=== PATIENT | male | born 1950 | race African-American/Black ===

== ENCOUNTER 2023-02-22 21:56 | Inpatient (IN) ==
[2023-02-22 22:37] LABS: Basophils # (auto) 0.03 K/uL (0.00-0.20); Basophils % (auto) 0.2 %; Eosinophils # (auto) 0.01 K/uL (0.00-0.50); Eosinophils % (auto) 0.1 %; Hematocrit (blood only) 38.6 % (42.0-52.0); Hemoglobin 12.5 g/dl (14.0-18.0); Immature Granulocytes # (auto) 0.13 K/uL (0.01-0.20); Immature Granulocytes % (auto) 0.9 %; Lymphocytes # (auto) 0.62 K/uL (1.20-3.40); Lymphocytes % (auto) 4.5 %; Mean Corpuscular Hemoglobin 26.7 pg (25.0-34.0); Mean Corpuscular Hgb Conc 32.4 g/dL (32.0-36.0); Mean Corpuscular Volume 82.3 fL (80.0-100.0); Mean Platelet Volume 10.6 fL (9.4-12.4); Monocytes # (auto) 1.29 K/uL (0.11-0.59); Monocytes % (auto) 9.3 %; Neutrophils # (auto) 11.72 K/uL (1.40-6.50); Platelet Count 199 K/uL (130-400); RDW Coefficient of Variation 16.7 % (11.5-14.5); RDW Standard Deviation 49.5 fL (36.4-46.3); Red Blood Count 4.69 M/uL (4.70-6.10)
[2023-02-22 22:51] LABS: Alanine Aminotransferase 10 U/L (7-52); Albumin Globulin Ratio 1.2 (0.9-2); Albumin Level 4.2 gm/dl (3.4-5.0); Alkaline Phosphatase 85 U/L (34-104); Anion Gap 9 (3-11); Aspartate Aminotransferase 15 U/L (13-39); BUN Creatinine Ratio 9.2 (10-20); Blood Urea Nitrogen 12 mg/dl (6-23); Calcium 9.5 mg/dl (8.6-10.3); Carbon Dioxide 22 mmol/L (21-32); Chloride 103 mmol/L (98-107); Est GFR (African American) 63.5 ml/min; Est GFR (Non-African American) 54.8 ml/min; Globulin 3.4 gm/dl (2.5-4.0); Glucose 176 mg/dl (70-99(Fasting)); Potassium 4.4 mmol/L (3.5-5.1); Sodium 134 mmol/L (136-145); Total Protein 7.6 gm/dl (6.0-8.3)
--- NOTE | 2023-02-22 23:56 | XRay Report ---
SINGLE VIEW CHEST CLINICAL HISTORY: Dyspnea FINDINGS: A PA chest radiograph is obtained. No prior studies are available for comparison at the jeff e of dictation. The heart is top normal for projection. The lungs and pleural spaces are clear. No pn eumothorax is seen. The bony thorax is grossly intact. IMPRESSION: No active disease in the chest. ACT 112: Negative or not required by law. Electronically signed by: Vic Lopez M.D. 02/22/2023 11:54 PM
[2023-02-23] MEDS ORDERED: SODIUM CHLORIDE 0.9% 500 ML IV ONE (01:10)
[2023-02-23 01:43] LABS: Appearance Urine Cloudy (Clear); Bacteria Urine Automated 4+ (Negative); Bilirubin Urine Negative (Negative); Blood Urine 1+ (Negative); Color Urine Yellow; Epithelial Cell Urine Auto 0-5 /lpf (0-5); Glucose Urine UA Negative (Negative); Ketones Urine Trace (Negative); Leukocyte Esterase Urine 2+ (Negative); Nitrite Urine Negative (Negative); Protein Urine 2+ (Negative); Specific Gravity Urine 1.021 (1.000-1.030); Urobilinogen Urine Negative (Negative); WBC Urine Automated >30 /hpf (0-5)
[2023-02-23] MEDS ORDERED: ONDANSETRON INJ 2 MG/ML 2 ML VIAL ONE (04:10)
[2023-02-23] MEDS ORDERED: MEROPENEM 500 MG in SYRINGE 0 ML IV STA (04:53)
--- NOTE | 2023-02-23 05:22 | History & Physical Report ---
Date of Service February 23, 2023 Assessment & Plan (1) UTI (urinary tract infection): Plan: 72yo male with history of renal transplant in 2020 on Tacrolimus and Mycophenolate mofetil immunosuppression therapy presenting with urinary complaints, elevated temperature and leukocytosis with WBC=13.8. Elevated procalcitonin of 0.72. Hemodynamically stable and nontoxic in appearance. Has history of UTI with Klebsiella -Admit to medical -Follow cultures sent in ER -Records from outside facility requested -Empiric Meropenem 500mg IV q 8 hours (2) Diarrhea: Plan: Patient with watery diarrhea - history of c.diff infection 2 months ago -Stool culture and c. diff -Empiric Vancomycin 125mg po daily given recent c. diff infection and immunocompromised status - will need to increase Vancomycin dose if patient proves to be c. diff positive -IVF given in ER. Electrolytes normal (3) Renal transplant recipient: Plan: Patient s/p renal transplant in 2020 from [facility]. BUN and Cr are within normal limits. No tenderness of transplant. Patient hemodynamically stable and non- toxic in appearance. -Continue Mycophenolate mofetil -Continue Tacrolimus (4) Hypertension: Plan: Chronic. Blood pressure elevated at present -Continue Carvedilol and Candesartan -Continue Nifedipine -Monitor BP (5) Diabetes: Plan: Patient on Tradjenta. Elevated glucose now at 176 -Fingersticks, ISS -Goal blood sugar 110-140 History of Present Illness Chief Complaint: UTI Primary Care Provider: VALERIE PARIKH Tobin Steele is a 72yo male with history of renal transplant in 2020 (performed at [facility]) presenting with UTI and generalized illness. Patient is from [place] and is in [place] for the football game. On 02/22/23 AM around 0900 he began to feel ill - lightheaded with body pain, sore hands and joints. He also developed nausea with 3 episodes of non-bloody/non-bilious emesis and watery diarrhea. He has also been experiencing dysuria as well as increased urinary frequency and incontinence. He did have a dry cough as well as some chest pressure earlier today. No additional complaints at this time. In the ER he has elevated temperature of 37.9, hemodynamically stable ER Provider contacted patient's transplant team for some baseline information. Patient had a UTI and Pneumonia in November and an episode of c. diff in December. He also had a UTI in January. His urine cultures were positive for Klebsiella species that had some resistance - sensitive to Meropenem/Ertapenem and Gentamicin. His baseline WBC on most recent labs was 5 and his baseline Cr was 1.4 Allergies Allergy/AdvReac Type Severity Reaction Status Date / Time Penicillins Allergy Swelling Verified 02/23/23 00:44 of Lip/Tongue/Throat shellfish derived Allergy Swelling Verified 02/23/23 00:44 of Lip/Tongue/Throat Home Medications Medication Instructions Recorded Confirmed Type candesartan 16 mg tablet 16 mg PO DAILY 02/23/23 02/23/23 History carvedilol 25 mg tablet 25 mg PO BID 02/23/23 02/23/23 History fluoxetine 20 mg capsule 20 mg PO DAILY 02/23/23 02/23/23 History fluticasone propionate 50 2 spray intranasal DAILY 02/23/23 02/23/23 History mcg/actuation nasal spray,suspension linagliptin 5 mg tablet (Tradjenta) 5 mg PO DAILY 02/23/23 02/23/23 History loratadine 10 mg tablet 10 mg PO DAILY 02/23/23 02/23/23 History melatonin 5 mg tablet 5 mg PO HS 02/23/23 02/23/23 History mycophenolate mofetil 500 mg tablet 1,000 mg PO Q12 02/23/23 02/23/23 History nifedipine 30 mg tablet,extended 30 mg PO DAILY 02/23/23 02/23/23 History release 24 hr rosuvastatin 10 mg tablet 10 mg PO HS 02/23/23 02/23/23 History tacrolimus 1 mg capsule, 2 mg PO AMHS 02/23/23 02/23/23 History immediate-release Past Med/Surg History Medical History Hypertension Renal transplant recipient Surgical History History of hernia repair History of knee surgery Social History Smoking Status: Never smoker Preferred Language: Amharic Feels Safe at Home: Yes Review of Systems Review of Systems: All systems reviewed & are unremarkable except as noted in HPI & below Physical Exam Physical Exam: General: patient resting comfortably, NAD, non-toxic in appearance, AA&O x 4 Skin: warm, dry, intact, no rashes or lesions HEENT: NC/AT, PERRL, EOMI, anicteric sclera, conjunctiva without injection, external ear normal to inspection and nontender, nares patent, moist mucus membranes, dentition intact, no oropharyngeal lesions, neck supple, trachea midline, no LAD, no thyromegaly, no JVD Heart: +S1/S2, regular, no m/r/g Lungs: equal air entry bilaterally, no rales/rhonchi/wheezes Abd: +BS, soft, NT/ND, no masses/organomegaly/ascites, nontender mass right anterior abdomen Ext: warm, 2+ pulses in UE/LE bilaterally, no clubbing/cyanosis or edema Neuro: nonfocal, patient AA&O x 4, speech intact, no facial droop, moving all extremities on command with equal strength 5/5 Results & Data Results & Data Vital Signs (Past 12 Hours) Vital Signs Temp Pulse Pulse Resp BP BP Pulse Ox 02/23/23 04:20 79 02/23/23 03:00 37.9 C H 84 18 169/88 H 99 02/23/23 02:30 80 16 97 02/23/23 02:00 77 22 96 02/23/23 01:30 73 20 96 02/23/23 01:00 73 22 96 02/23/23 00:30 77 23 97 02/23/23 00:29 76 02/22/23 22:02 37 C 86 18 151/72 H 97 O2 Del Method 02/23/23 04:20 02/23/23 03:00 Room Air 02/23/23 02:30 02/23/23 02:00 02/23/23 01:30 02/23/23 01:00 02/23/23 00:30 02/23/23 00:29 02/22/23 22:02 Room Air Laboratory Results Laboratory Results WBC 13.80 K/ul (4.8-10.8) H 02/22/23 22:19 RBC 4.69 M/uL (4.70-6.10) L 02/22/23 22:19 Hgb 12.5 g/dl (14.0-18.0) L 02/22/23 22:19 Hct 38.6 % (42.0-52.0) L 02/22/23 22:19 MCV 82.3 fL (80.0-100.0) 02/22/23 22:19 MCH 26.7 pg (25.0-34.0) 02/22/23 22:19 MCHC 32.4 g/dL (32.0-36.0) 02/22/23 22:19 RDW Std Deviation 49.5 fL (36.4-46.3) H 02/22/23 22:19 RDW Coeff of Miguelito 16.7 % (11.5-14.5) H 02/22/23 22:19 Plt Count 199 K/uL (130-400) 02/22/23 22:19 MPV 10.6 fL (9.4-12.4) 02/22/23 22:19 Immature Gran % (Auto) 0.9 % 02/22/23 22:19 Neut % (Auto) 85.0 % 02/22/23 22:19 Lymph % (Auto) 4.5 % 02/22/23 22:19 [place] % (Auto) 9.3 % 02/22/23 22:19 Eos % (Auto) 0.1 % 02/22/23 22:19 Baso % (Auto) 0.2 % 02/22/23 22:19 Neut # (Auto) 11.72 K/uL (1.40-6.50) H 02/22/23 22:19 Lymph # (Auto) 0.62 K/uL (1.20-3.40) L 02/22/23 22:19 [place] # (Auto) 1.29 K/uL (0.11-0.59) H 02/22/23 22:19 Eos # (Auto) 0.01 K/uL (0.00-0.50) 02/22/23 22:19 Baso # (Auto) 0.03 K/uL (0.00-0.20) 02/22/23 22:19 Immature Gran # (Auto) 0.13 K/uL (0.01-0.20) 02/22/23 22:19 Sodium 134 mmol/L (136-145) L 02/22/23 22:19 Potassium 4.4 mmol/L (3.5-5.1) 02/22/23 22:19 Chloride 103 mmol/L (98-107) 02/22/23 22:19 Carbon Dioxide 22 mmol/L (21-32) 02/22/23 22:19 Anion Gap 9 (3-11) 02/22/23 22:19 BUN 12 mg/dl (6-23) 02/22/23 22:19 Creatinine 1.31 mg/dl (0.6-1.4) 02/22/23 22:19 Est Cr Clr Drug Dosing Not Reportable 02/22/23 22:19 Est GFR ( Amer) 63.5 ml/min 02/22/23 22:19 Est GFR (Non-Af Amer) 54.8 ml/min 02/22/23 22:19 BUN/Creatinine Ratio 9.2 (10-20) L 02/22/23 22:19 Glucose 176 mg/dl (70-99(Fasting)) H 02/22/23 22:19 Lactate 1.4 mmol/L (0.4-2.0) 02/23/23 00:57 Calcium 9.5 mg/dl (8.6-10.3) 02/22/23 22:19 Total Bilirubin 1.0 mg/dl (0.2-1.0) 02/22/23 22:19 AST 15 U/L (13-39) 02/22/23 22:19 ALT 10 U/L (7-52) 02/22/23 22:19 Alkaline Phosphatase 85 U/L (34-104) 02/22/23 22:19 Troponin I High Sens 16.0 pg/ml (0-20) 02/22/23 22:19 Total Protein 7.6 gm/dl (6.0-8.3) 02/22/23 22:19 Albumin 4.2 gm/dl (3.4-5.0) 02/22/23 22:19 Globulin 3.4 gm/dl (2.5-4.0) 02/22/23 22:19 Albumin/Globulin Ratio 1.2 (0.9-2) 02/22/23 22:19 Procalcitonin 0.72 ng/ml (0-0.5) H 02/23/23 02:11 Urine Color Yellow 02/23/23 01:24 Urine Appearance Cloudy (Clear) A 02/23/23 01:24 Urine pH 7.0 (4.5-7.5) 02/23/23 01:24 Ur Specific [place] 1.021 (1.000-1.030) 02/23/23 01:24 Urine Protein 2+ (Negative) H 02/23/23 01:24 Urine Glucose (UA) Negative (Negative) 02/23/23 01:24 Urine Ketones Trace (Negative) H 02/23/23 01:24 Urine Blood 1+ (Negative) H 02/23/23 01:24 Urine Nitrite Negative (Negative) 02/23/23 01:24 Urine Bilirubin Negative (Negative) 02/23/23 01:24 Urine Urobilinogen Negative (Negative) 02/23/23 01:24 Ur Leukocyte Esterase 2+ (Negative) H 02/23/23 01:24 Urine WBC (Auto) >30 /hpf (0-5) H 02/23/23 01:24 Urine RBC (Auto) 10-30 /hpf (0-4) H 02/23/23 01:24 U Hyaline Cast (Auto) 1-5 /lpf (0-5) 02/23/23 01:24 U Epithel Cells (Auto) 0-5 /lpf (0-5) 02/23/23 01:24 Urine Bacteria (Auto) 4+ (Negative) H 02/23/23 01:24 SARS-CoV-2, RNA, NAAT NEGATIVE (NEGATIVE) 02/22/23 22:13 Impressions Chest X-Ray 02/22/23 22:09 SINGLE VIEW CHEST CLINICAL HISTORY: Dyspnea FINDINGS: A PA chest radiograph is obtained. No prior studies are available for comparison at the time of dictation. The heart is top normal for projection. The lungs and pleural spaces are clear. No pneumothorax is seen. The bony thorax is grossly intact. IMPRESSION: No active disease in the chest. ACT 112: Negative or not required by law. Electronically signed by: Vic Lopez M.D. 02/22/2023 11:54 PM Code Status & VTE Plan VTE Prophylaxis Plan VTE Prophylaxis will be ordered: Yes PG Care Time/CCT Total # of Minutes Spent Total Time Spent with Patient: Total time spent is greater than 50% in coordination of care (as documented) at patient's floor/unit and/or counseling patient: Coding Level of Care Code 06069 INT INP/OBS CARE 3/75MIN Diagnoses UTI (urinary tract infection) N39.0 Diarrhea R19.7 Renal transplant recipient Z94.0 Hypertension I10 Diabetes E11.9
--- NOTE | 2023-02-23 05:47 | Emergency Department Note ---
Impression & Plan UTI (urinary tract infection), Transplant recipient, C. difficile [facility] NAME: KENNY LIN AGE: 72 SEX: M ARRIVES VIA: Walk-In INFORMANT: Patient and his ED PROVIDER(S): Eli Bowie DO CHIEF COMPLAINT: Dysuria; urinary incontinence PLAN: Disposition: Admit to the [facility] Condition: Stable MEDICAL DECISION MAKING: This is a 72-year-old male patient who is the renal transplant from 2020 who presents to the emergency department with dysuria and urinary incontinence after an episode of shaking chills earlier today. Patient also describes feeling lightheaded, short of breath, chest pain and excessive coughing earlier in the day. He has had decreased oral intake throughout the day and 2 episodes of vomi ting. Patient had been admitted to hospital in [place] in mid January for bacterial infection of the urine which required treatment with IV antibiotics. Patient also has a history of C. difficile for which she was treated earlier this summer. On presentation today, septic work-up reveals a mild leukocytosis with a white count of 13.8. Lactate was normal but procalcitonin was elevated slightly. Patient's temperature did elevate 37.9 while here in the emergency department. Possible source of infection was the patient's urine which does appear to be infected. Chest x-ray is unremarkable. As for the patient's episode of chest heaviness earlier in the day, he has a negative troponin and E KG was unremarkable. The patient did develop fairly significant diarrhea while here in the emergency department. We did obtain a stool specimen which will be tested for C. difficile. I did have a lengthy conversation with the on-call transplant vehicle damage appraiser who was able to give me urine culture and sensitivity results from his hospitalization on January 29. The patient had a resistant Klebsiella which was sensitive to ertapenem, gentamicin and meropenem. The patient does have a penicillin allergy. Interestingly, the patient did give a urine specimen on 02/19 which was negative. Given his presentation today, I will start the patient on IV meropenem. The patient's baseline creatinine from 02/19 was 1.4. Today it is 1.3. The transplant vehicle damage appraiser felt it was okay for the patient to be ad mitted to our facility on IV antibiotics over the next days to see if he improves. If not, they would be willing to accept him in transfer back to their facility in [place]. The patient and his are comfortable with this decision. I explained all this to the admitting [facility] Hospitalist. The stool did result at the end of his emergency department stay and was positive for C. difficile. This will be relayed to the admitting team. Triage Nursing notes reviewed and agree with them. Additional history obtained from the patient's as well as the transplant vehicle damage appraiser from the tertiary care transplant center in [place] External records were reviewed that the patient had with him from his most recent admission in January Vital Signs: reviewed and are unremarkable Differential diagnosis: Sepsis, UTI, C. difficile, pneumonia, acute kidney injury ER treatment provided: school bus monitor Twelve-lead EKG IV normal saline bolus IV Zofran IV meropenem Diagnostics interpreted by me: ECG: Normal sinus rhythm at a rate of [address] segment elevation or signs of ischemia. There is no ectopy. Cardiac Monitoring: Normal sinus rhythm at a rate of 79 Laboratory studies: See below Imaging studies: As per my independent interpretation Portable chest x-ray no acute pulmonary infiltrates or consolidation Consultations: Dr. Sales -transplant vehicle damage appraiser HPI: 72/M arrives for evaluation of dysuria and urinary incontinence. Is a patient who has a history of renal transplant 2020. He presents to the emergency department with an episode dysuria and urinary incontinence. Patient had an episode earlier in the day where he felt short of breath excessive coughing. He became lightheaded and had chest heaviness at that time. Those symptoms seem to have subsided. Overall, the patient began to feel worse and was concerned and came to the emergency department. PAST MEDICAL HISTORY:Renal transplant-2020; diabetes; hypertension; C. difficile, recent bacterial infection of the urine requiring IV antibiotics PAST SURGICAL HISTORY:Renal transplant 2020 SOCIAL HISTORY:Patient lives in [place] and was visiting for the [employer] football game HOME MEDICATIONS: See list ALLERGIES: See list VITALS:See Below PHYSICAL EXAMINATION: HEENT: Head - normocephalic and atraumatic. Pupils are equal, round, and reactive to light. Extraocular eye muscles are intact, and sclera are anicteric. Nose - moist nasal mucosa without discharge. Mouth - moist buccal mucosa. Oropharynx is nonerythematous and there is no tonsillar exudate or edema noted. Neck: Supple; no cervical lymphadenopathy Heart: Regular rate and rhythm. There is a normal S1 and S2 with no murmurs, clicks, or gallops appreciated. Lungs: Clear to auscultation bilaterally with no wheezes, rales, or rhonchi. Abdomen: Soft, completely nontender, nondistended, with good bowel sounds. There are no palpable pulsatile masses or hepatosplenomegaly. There is no guarding, rigidity, or rebound noted. Extremities: No evidence of cyanosis, clubbing, or edema. There are easily palpable peripheral pulses. Skin: warm and dry with good turgor and no rashes. ED COURSE: Times/Reassessments: 0005: Patient was evaluated in room C2. A complete history and physical was performed. A septic protocol was performed. Patient was bolused with IV normal saline solution. He was given a dose of IV Zofran for his nausea. Order was placed for continuous cardiac monitoring. The patient was in a normal sinus rhythm at a rate of 79. A twelve-lead EKG was obtained as described above. A portable chest x-ray was performed. I discussed the case with the transplant vehicle damage appraiser in [place]. Patient was started on IV meropenem. A stool specimen was collected. Eli Bowie DO Past Med/Surg History Medical History Hypertension Renal transplant recipient Surgical History History of hernia repair History of knee surgery Social History Smoking Status: Former smoker Preferred Language: Syriac Communication Ability: Effective Bean Sorter Required: No Beliefs That Will Affect Care: None Current Living Situation: Spouse Feels Safe at Home: Yes Assistive Devices: Cane Allergies Allergies Allergy/AdvReac Type Severity Reaction Status Date / Time Penicillins Allergy Swelling Verified 02/23/23 00:44 of Lip/Tongue/Throat shellfish derived Allergy Swelling Verified 02/23/23 00:44 of Lip/Tongue/Throat Home Meds Home Medications Medication Instructions Recorded Confirmed candesartan 16 mg tablet 16 mg PO DAILY 02/23/23 02/23/23 carvedilol 25 mg tablet 25 mg PO BID 02/23/23 02/23/23 fluoxetine 20 mg capsule 20 mg PO DAILY 02/23/23 02/23/23 fluticasone propionate 50 2 spray intranasal DAILY 02/23/23 02/23/23 mcg/actuation nasal spray,suspension linagliptin 5 mg tablet (Tradjenta) 5 mg PO DAILY 02/23/23 02/23/23 loratadine 10 mg tablet 10 mg PO DAILY 02/23/23 02/23/23 melatonin 5 mg tablet 5 mg PO HS 02/23/23 02/23/23 mycophenolate mofetil 500 mg tablet 1,000 mg PO Q12 02/23/23 02/23/23 nifedipine 30 mg tablet,extended 30 mg PO DAILY 02/23/23 02/23/23 release 24 hr rosuvastatin 10 mg tablet 10 mg PO HS 02/23/23 02/23/23 tacrolimus 1 mg capsule, 2 mg PO AMHS 02/23/23 02/23/23 immediate-release Results & Data (ED) Vital Signs Vital Signs - 24 hr 02/22/23 22:02 02/23/23 00:29 02/23/23 00:30 Temperature 37 C Temperature Source Temporal Artery Scan Pulse Rate 86 76 77 Pulse Rate [Apical] Pulse Rate from SpO2 Sensor 75 Pulse Rhythm [Apical] Pulse Strength [Apical] Respiratory Rate 18 23 Respiratory Effort / Characteristics Non-Labored Respiratory Depth Normal Respiratory Pattern Regular Blood Pressure 151/72 H Blood Pressure [Right Arm] Blood Pressure Mean 98 Blood Pressure Mean [Right Arm] Pulse Oximetry 97 97 Oxygen Delivery Method Room Air Sepsis Recent Fever Within 48 Hours No Sepsis New/Unexplained Change in Mental Status Yes Sepsis Action Taken by Nursing No Action Required 02/23/23 01:00 02/23/23 01:30 02/23/23 02:00 Temperature Temperature Source Pulse Rate 73 73 77 Pulse Rate [Apical] Pulse Rate from SpO2 Sensor 75 74 80 Pulse Rhythm [Apical] Pulse Strength [Apical] Respiratory Rate 22 20 22 Respiratory Effort / Characteristics Respiratory Depth Respiratory Pattern Blood Pressure Blood Pressure [Right Arm] Blood Pressure Mean Blood Pressure Mean [Right Arm] Pulse Oximetry 96 96 96 Oxygen Delivery Method Sepsis Recent Fever Within 48 Hours Sepsis New/Unexplained Change in Mental Status Sepsis Action Taken by Nursing 02/23/23 02:30 02/23/23 03:00 02/23/23 04:20 Temperature 37.9 C H Temperature Source Oral Pulse Rate 80 79 Pulse Rate [Apical] 84 Pulse Rate from SpO2 Sensor 80 Pulse Rhythm [Apical] Regular Pulse Strength [Apical] Normal Respiratory Rate 16 18 Respiratory Effort / Characteristics Non-Labored Spontaneous Respiratory Depth Normal Respiratory Pattern Regular Blood Pressure Blood Pressure [Right Arm] 169/88 H Blood Pressure Mean Blood Pressure Mean [Right Arm] 115 Pulse Oximetry 97 99 Oxygen Delivery Method Room Air Sepsis Recent Fever Within 48 Hours Sepsis New/Unexplained Change in Mental Status Sepsis Action Taken by Nursing Laboratory Data 02/22/23 22:19 02/22/23 22:19 Lab Results 02/22/23 02/22/23 02/22/23 Range/Units 22:13 22:19 22:19 WBC 13.80 H (4.8-10.8) K/ul RBC 4.69 L (4.70-6.10) M/uL Hgb 12.5 L (14.0-18.0) g/dl Hct 38.6 L (42.0-52.0) % MCV 82.3 (80.0-100.0) fL MCH 26.7 (25.0-34.0) pg MCHC 32.4 (32.0-36.0) g/dL RDW Std Deviation 49.5 H (36.4-46.3) fL RDW Coeff of Miguelito 16.7 H (11.5-14.5) % Plt Count 199 (130-400) K/uL MPV 10.6 (9.4-12.4) fL Immature Gran % (Auto) 0.9 % Neut % (Auto) 85.0 % Lymph % (Auto) 4.5 % Clay % (Auto) 9.3 % Eos % (Auto) 0.1 % Baso % (Auto) 0.2 % Neut # (Auto) 11.72 H (1.40-6.50) K/uL Lymph # (Auto) 0.62 L (1.20-3.40) K/uL Clay # (Auto) 1.29 H (0.11-0.59) K/uL Eos # (Auto) 0.01 (0.00-0.50) K/uL Baso # (Auto) 0.03 (0.00-0.20) K/uL Immature Gran # (Auto) 0.13 (0.01-0.20) K/uL Sodium 134 L (136-145) mmol/L Potassium 4.4 (3.5-5.1) mmol/L Chloride 103 (98-107) mmol/L Carbon Dioxide 22 (21-32) mmol/L Anion Gap 9 (3-11) BUN 12 (6-23) mg/dl Creatinine 1.31 (0.6-1.4) mg/dl Est Cr Clr Drug Dosing Not Reportable Est GFR ( Amer) 63.5 ml/min Est GFR (Non-Af Amer) 54.8 ml/min BUN/Creatinine Ratio 9.2 L (10-20) Glucose 176 H (70-99(Fasting)) mg/dl Estimat Average Glucose mg/dl Hemoglobin A1c (4.5-5.6) % Lactate (0.4-2.0) mmol/L Calcium 9.5 (8.6-10.3) mg/dl Magnesium (1.7-2.4) mg/dl Total Bilirubin 1.0 (0.2-1.0) mg/dl AST 15 (13-39) U/L ALT 10 (7-52) U/L Alkaline Phosphatase 85 (34-104) U/L Troponin I High Sens 16.0 (0-20) pg/ml Total Protein 7.6 (6.0-8.3) gm/dl Albumin 4.2 (3.4-5.0) gm/dl Globulin 3.4 (2.5-4.0) gm/dl Albumin/Globulin Ratio 1.2 (0.9-2) Procalcitonin Urine Color Urine Appearance (Clear) Urine pH (4.5-7.5) Ur Specific Leupp (1.000-1.030) Urine Protein (Negative) Urine Glucose (UA) (Negative) Urine Ketones (Negative) Urine Blood (Negative) Urine Nitrite (Negative) Urine Bilirubin (Negative) Urine Urobilinogen (Negative) Ur Leukocyte Esterase (Negative) Urine WBC (Auto) (0-5) /hpf Urine RBC (Auto) (0-4) /hpf U Hyaline Cast (Auto) (0-5) /lpf U Epithel Cells (Auto) (0-5) /lpf Urine Bacteria (Auto) (Negative) SARS-CoV-2, RNA, NAAT NEGATIVE (NEGATIVE) 02/22/23 02/22/23 02/22/23 Range/Units 22:19 22:19 22:19 WBC (4.8-10.8) K/ul RBC (4.70-6.10) M/uL Hgb (14.0-18.0) g/dl Hct (42.0-52.0) % MCV (80.0-100.0) fL MCH (25.0-34.0) pg MCHC (32.0-36.0) g/dL RDW Std Deviation (36.4-46.3) fL RDW Coeff of Miguelito (11.5-14.5) % Plt Count (130-400) K/uL MPV (9.4-12.4) fL Immature Gran % (Auto) % Neut % (Auto) % Lymph % (Auto) % Clay % (Auto) % Eos % (Auto) % Baso % (Auto) % Neut # (Auto) (1.40-6.50) K/uL Lymph # (Auto) (1.20-3.40) K/uL Clay # (Auto) (0.11-0.59) K/uL Eos # (Auto) (0.00-0.50) K/uL Baso # (Auto) (0.00-0.20) K/uL Immature Gran # (Auto) (0.01-0.20) K/uL Sodium (136-145) mmol/L Potassium (3.5-5.1) mmol/L Chloride (98-107) mmol/L Carbon Dioxide (21-32) mmol/L Anion Gap (3-11) BUN (6-23) mg/dl Creatinine (0.6-1.4) mg/dl Est Cr Clr Drug Dosing Est GFR ( Amer) ml/min Est GFR (Non-Af Amer) ml/min BUN/Creatinine Ratio (10-20) Glucose (70-99(Fasting)) mg/dl Estimat Average Glucose 154 mg/dl Hemoglobin A1c 7.0 H (4.5-5.6) % Lactate (0.4-2.0) mmol/L Calcium (8.6-10.3) mg/dl Magnesium 1.6 L (1.7-2.4) mg/dl Total Bilirubin (0.2-1.0) mg/dl AST (13-39) U/L ALT (7-52) U/L Alkaline Phosphatase (34-104) U/L Troponin I High Sens (0-20) pg/ml Total Protein (6.0-8.3) gm/dl Albumin (3.4-5.0) gm/dl Globulin (2.5-4.0) gm/dl Albumin/Globulin Ratio (0.9-2) Procalcitonin Cancelled Urine Color Urine Appearance (Clear) Urine pH (4.5-7.5) Ur Specific Leupp (1.000-1.030) Urine Protein (Negative) Urine Glucose (UA) (Negative) Urine Ketones (Negative) Urine Blood (Negative) Urine Nitrite (Negative) Urine Bilirubin (Negative) Urine Urobilinogen (Negative) Ur Leukocyte Esterase (Negative) Urine WBC (Auto) (0-5) /hpf Urine RBC (Auto) (0-4) /hpf U Hyaline Cast (Auto) (0-5) /lpf U Epithel Cells (Auto) (0-5) /lpf Urine Bacteria (Auto) (Negative) SARS-CoV-2, RNA, NAAT (NEGATIVE) 02/23/23 02/23/23 02/23/23 Range/Units 00:57 01:24 02:11 WBC (4.8-10.8) K/ul RBC (4.70-6.10) M/uL Hgb (14.0-18.0) g/dl Hct (42.0-52.0) % MCV (80.0-100.0) fL MCH (25.0-34.0) pg MCHC (32.0-36.0) g/dL RDW Std Deviation (36.4-46.3) fL RDW Coeff of Miguelito (11.5-14.5) % Plt Count (130-400) K/uL MPV (9.4-12.4) fL Immature Gran % (Auto) % Neut % (Auto) % Lymph % (Auto) % Clay % (Auto) % Eos % (Auto) % Baso % (Auto) % Neut # (Auto) (1.40-6.50) K/uL Lymph # (Auto) (1.20-3.40) K/uL Clay # (Auto) (0.11-0.59) K/uL Eos # (Auto) (0.00-0.50) K/uL Baso # (Auto) (0.00-0.20) K/uL Immature Gran # (Auto) (0.01-0.20) K/uL Sodium (136-145) mmol/L Potassium (3.5-5.1) mmol/L Chloride (98-107) mmol/L Carbon Dioxide (21-32) mmol/L Anion Gap (3-11) BUN (6-23) mg/dl Creatinine (0.6-1.4) mg/dl Est Cr Clr Drug Dosing Est GFR ( Amer) ml/min Est GFR (Non-Af Amer) ml/min BUN/Creatinine Ratio (10-20) Glucose (70-99(Fasting)) mg/dl Estimat Average Glucose mg/dl Hemoglobin A1c (4.5-5.6) % Lactate 1.4 (0.4-2.0) mmol/L Calcium (8.6-10.3) mg/dl Magnesium (1.7-2.4) mg/dl Total Bilirubin (0.2-1.0) mg/dl AST (13-39) U/L ALT (7-52) U/L Alkaline Phosphatase (34-104) U/L Troponin I High Sens (0-20) pg/ml Total Protein (6.0-8.3) gm/dl Albumin (3.4-5.0) gm/dl Globulin (2.5-4.0) gm/dl Albumin/Globulin Ratio (0.9-2) Procalcitonin 0.72 H Urine Color Yellow Urine Appearance Cloudy A (Clear) Urine pH 7.0 (4.5-7.5) Ur Specific Leupp 1.021 (1.000-1.030) Urine Protein 2+ H (Negative) Urine Glucose (UA) Negative (Negative) Urine Ketones Trace H (Negative) Urine Blood 1+ H (Negative) Urine Nitrite Negative (Negative) Urine Bilirubin Negative (Negative) Urine Urobilinogen Negative (Negative) Ur Leukocyte Esterase 2+ H (Negative) Urine WBC (Auto) >30 H (0-5) /hpf Urine RBC (Auto) 10-30 H (0-4) /hpf U Hyaline Cast (Auto) 1-5 (0-5) /lpf U Epithel Cells (Auto) 0-5 (0-5) /lpf Urine Bacteria (Auto) 4+ H (Negative) SARS-CoV-2, RNA, NAAT (NEGATIVE) Administered Medications Acetaminophen (Acetaminophen 325 Mg Tab) 650 mg PO Q6H PRN PRN Reason: Fever or headache Stop: 03/25/23 09:41 Last Admin: 02/23/23 17:49 Dose: 650 mg Documented By: Admin: 02/23/23 10:21 Dose: 650 mg Documented By: FLORENTIN Carvedilol (Carvedilol 25 Mg Tab) 25 mg PO BIDM [facility] Stop: 03/25/23 08:59 Last Admin: 02/23/23 16:57 Dose: 25 mg Documented By: Admin: 02/23/23 10:06 Dose: Not Given Documented By: FLORENTIN Godoy Syrup (Godoy Syrup 5 Ml Udp) 5 ml PO Q6H [facility] Stop: 03/05/23 15:29 Last Admin: 02/23/23 16:58 Dose: 5 ml Documented By: Admin: 02/23/23 15:36 Dose: 5 ml Documented By: VIDHI Fluoxetine HCl (Fluoxetine Hcl 20 Mg Cap) 20 mg PO DAILY [facility] Stop: 03/25/23 08:59 Last Admin: 02/23/23 10:06 Dose: Not Given Documented By: FLORENTIN Fluticasone Propionate (Fluticasone Propionate Na Spr 16 Gm Btl) 2 sprays NA DAILY [facility] Stop: 03/25/23 08:59 Last Admin: 02/23/23 10:07 Dose: Not Given Documented By: FLORENTIN Heparin Sodium (Porcine) (Heparin Sod 5,000 Unit/0.5 Ml Vial) 5,000 units SQ Q 12 [facility] Stop: 03/25/23 08:59 Last Admin: 02/23/23 10:21 Dose: 5,000 units Documented By: FLORENTIN Meropenem 500 mg/ Syringe 10 mls @ 2 mls/min IV Q8H [facility]; Protocol Stop: 03/05/23 09:29 Last Admin: 02/23/23 13:20 Dose: 2 mls/min Documented By: VIDHI Insulin Aspart (Insulin Aspart Per Unit Charge) 0 units SC ACHS [facility] Stop: 03/25/23 08:55 Last Admin: 02/23/23 16:57 Dose: 5 units Documented By: VIDHI Co-signed By: TRACI Admin: 02/23/23 12:45 Dose: 1 units Documented By: VIDHI Co-signed By: DAVID Admin: 02/23/23 12:20 Dose: Not Given Documented By: VIDHI Loratadine (Loratadine 10 Mg Tab) 10 mg PO DAILY [facility] Stop: 03/25/23 08:59 Last Admin: 02/23/23 10:09 Dose: Not Given Documented By: FLORENTIN Losartan Potassium (Losartan Potassium 50 Mg Tab) 50 mg PO DAILY [facility] Stop: 03/25/23 08:59 Last Admin: 02/23/23 10:09 Dose: Not Given Documented By: FLORENTIN Mycophenolate Mofetil (Mycophenolate Mofetil 250 Mg Cap) 1,000 mg PO Q12 [facility] Stop: 03/25/23 08:59 Last Admin: 02/23/23 10:09 Dose: Not Given Documented By: FLORENTIN Nifedipine (Nifedipine Extended Rel 30 Mg Tabcr) 30 mg PO DAILY [facility] Stop: 03/25/23 08:59 Last Admin: 02/23/23 10:09 Dose: Not Given Documented By: FLORENTIN Tacrolimus (Tacrolimus 1 Mg Cap) 2 mg PO AMHS [facility] Stop: 03/25/23 08:59 Last Admin: 02/23/23 10:07 Dose: Not Given Documented By: FLORENTIN Vancomycin HCl (Vancomycin Hcl 250 Mg/5 Ml Soln) 250 mg PO Q6H [facility] Stop: 02/25/23 16:59 Last Admin: 02/23/23 16:58 Dose: 250 mg Documented By: VIDHI Discontinued Medications Godoy Syrup (Godoy Syrup 5 Ml Udp) 5 ml PO ONE STA Stop: 02/23/23 08:57 Last Admin: 02/23/23 09:35 Dose: 5 ml Documented By: FLORENTIN Sodium Chloride (Nss) 500 mls @ 999 mls/hr IV .Q31M ONE Stop: 02/23/23 01:40 Last Infusion: 02/23/23 02:34 Dose: 0 mls/hr Documented By: Admin: 02/23/23 01:21 Dose: 999 mls/hr Documented By: KAREN Meropenem 500 mg/ Syringe 10 mls @ 2 mls/min IV NOW STA; Protocol Stop: 02/23/23 04:57 Last Admin: 02/23/23 05:43 Dose: 2 mls/min Documented By: HJW Ondansetron HCl (Ondansetron Inj 2 Mg/Ml 2 Ml Vial) Confirm Administered Dose 4 mg .ROUTE .STK-MED ONE Stop: 02/23/23 04:11 Last Admin: 02/23/23 04:13 Dose: 4 mg Documented By: GREG Vancomycin HCl (Vancomycin Hcl 125 Mg/2.5ml Soln) 125 mg PO ONE ONE Stop: 02/23/23 09:31 Last Admin: 02/23/23 09:35 Dose: 125 mg Documented By: FLORENTIN Vancomycin HCl (Vancomycin Hcl 125 Mg/2.5ml Soln) 125 mg PO Q6H [facility] Stop: 02/25/23 15:29 Last Admin: 02/23/23 15:35 Dose: 125 mg Documented By: VIDHI Imaging Data Radiologist's Impression: Chest X-Ray 02/22/23 22:09 SINGLE VIEW CHEST CLINICAL HISTORY: Dyspnea FINDINGS: A PA chest radiograph is obtained. No prior studies are available for comparison at the time of dictation. The heart is top normal for projection. The lungs and pleural spaces are clear. No pneumothorax is seen. The bony thorax is grossly intact. IMPRESSION: No active disease in the chest. ACT 112: Negative or not required by law. Electronically signed by: Vic Lopez M.D. 02/22/2023 11:54 PM Discharge Plan Visit Data Chief Complaint: Shortness of Breath/Dyspnea Stated Complaint: SOB, COUGH, RECIEVED KIDNEY TRANSPLANT ED Provider: Eli Bowie Discharge Problem: UTI (urinary tract infection), Transplant recipient, C. difficile diarrhea Patient Disposition: Admitted As Inpatient Discharge Instructions Interventions: ED Discharge Assessment Last Done: 02/23/23 11:50
[2023-02-23 07:46] LABS: Cdiff Toxin B Gene (2yr or >) Positive Cdiff Gene (Neg)
[2023-02-23 08:22] LABS: Cdiff Antigen Positive
[2023-02-23 08:29] LABS: Cdiff Toxin A+B Positive Cdiff Toxin (Negative)
--- NOTE | 2023-02-23 08:45 | Electrocardiogram Report ---
Test Reason : Blood Pressure : / mmHG Vent. Rate : 084 BPM Atrial Rate : 084 BPM P-R Int : 154 ms QRS Dur : 094 ms QT Int : 336 ms P-R-T Axes : 016 -06 014 degrees QTc Int : 397 ms Normal sinus rhythm with sinus arrhythmia Nonspecific T wave abnormality Abnormal ECG No previous ECGs available Confirmed by Chalino Vaughan ([id number]) on 02/23/2023 8:45:05 AM Referred By: REFERRED SELF Confirmed By:Chalino Vaughan
[2023-02-23] MEDS ORDERED: CHERRY SYRUP 5 ML UDP PO STA (08:56)
[2023-02-23] MEDS ORDERED: GLUCOSE 10 TAB/TUBE PO PRN (08:56)
[2023-02-23] MEDS ORDERED: DEXTROSE 50% 50 ML SYRINGE IV PRN (08:56)
[2023-02-23] MEDS ORDERED: GLUCOSE 40% GEL 15 GM TUBE PO PRN (08:56)
[2023-02-23] MEDS ORDERED: GLUCAGON FOR INJ 1 MG VIAL SQ PRN (08:56)
[2023-02-23] MEDS ORDERED: CARBOHYDRATES FOR HYPOGLYCEMIA PO PRN (08:56)
[2023-02-23] MEDS ORDERED: ONDANSETRON INJ 2 MG/ML 2 ML VIAL IV PRN ×2 (08:56)
[2023-02-23] MEDS ORDERED: VANCOMYCIN HCL 125 MG/2.5ML SOLN PO ONE (09:30)
[2023-02-23 09:55] LABS: Estimated Average Glucose 154 mg/dl
[2023-02-23] MEDS: carvediloL 25 MG TAB PO SCH ×2 (10:06→16:57)
[2023-02-23] MEDS: FLUoxetine HCL 20 MG CAP PO SCH (10:06)
[2023-02-23] MEDS: TACROLIMUS 1 MG CAP PO SCH ×2 (10:07→21:20)
[2023-02-23] MEDS: FLUTICASONE PROPIONATE NA SPR 16 GM BTL SCH (10:07)
[2023-02-23] MEDS: LORATADINE 10 MG TAB PO SCH (10:09)
[2023-02-23] MEDS: MYCOPHENOLATE MOFETIL 250 MG CAP PO SCH ×2 (10:09→21:20)
[2023-02-23] MEDS: LOSARTAN POTASSIUM 50 MG TAB PO SCH (10:09)
[2023-02-23] MEDS: NIFEdipine EXTENDED REL 30 MG TABCR PO SCH (10:09)
[2023-02-23] MEDS: HEPARIN SOD 5,000 UNIT/0.5 ML VIAL SQ SCH ×2 (10:21→21:20)
[2023-02-23] MEDS: ACETAMINOPHEN 325 MG TAB PO PRN ×2 (10:21→17:49)
--- NOTE | 2023-02-23 11:29 | Hospitalist Progress Note ---
Date of Service February 23, 2023 Assessment & Plan (1) UTI (urinary tract infection): Plan: Past history of Klebsiella infection. He is now on meropenem, day 1. Urine cultures pending. He is immunosuppressed, taking tacrolimus and mycophenolate after renal transplant. (2) Diarrhea: Plan: history of c.diff infection 2 months ago. Stool culture and c. diff pending. Continue vancomycin p.o. dosing for now (3) Renal transplant recipient: Plan: Patient s/p renal transplant in 2020 from [place]. BUN and Cr are within normal limits. Continue Mycophenolate and Tacrolimus (4) Hypertension: Plan: Stable. Treated with carvedilol, candesartan, nifedipine (5) Diabetes: Plan: ADA diet. Sliding scale coverage. Patient on Tradjenta at home Plan Anticipate eventual discharge to home Admission and Anticipated Discharge Date Admission Date: February 23, 2023 Subjective Alert and oriented. No acute distress. Unfortunately, he traveled here from [place] to watch the [employer] but obviously cannot attend the game now. White count is elevated. He is on meropenem, day 1. Urine cultures and blood cultures are pending. C. difficile toxin assay is also pending. Review of Systems Review of Systems: Constitutional-recent onset of fever and chills ENT-no blurred vision, no double vision, no epistaxis, no sore throat Respiratory-no cough, no wheezing, no shortness of breath Cardiac-no palpitations, no chest pain, no syncope GI-no nausea, vomiting, melena, hematochezia. He has noticed diarrhea stools -no urinary retention, no urinary incontinence, no dysuria, no hematuria Musculoskeletal-no joint pain, no muscle tenderness Skin-no bruising, no rashes, no pruritus Neuro-no isolated weakness, no paresthesia, no weakness Psych-no depression, no anxiety Physical Exam Physical Exam: General-alert and oriented x3. Recent onset of fever and chills HEENT-head atraumatic and normocephalic, pupils equal and reactive to light, extraocular muscles intact Neck-no lymphadenopathy or thyromegaly, trachea midline Chest-clear to auscultation percussion. No rales wheezing or rhonchi Cardiac-regular rate and rhythm, normal S1 and S2 Abdomen-normal bowel sounds, nontender, no hepatosplenomegaly Extremities-no cyanosis, clubbing, or edema Neuro-cranial nerves II through XII intact, motor and sensory function within normal limits, strength symmetrical , no focal deficits Psych-normal affect, normal mood Results & Data Results & Data Vital Signs (Past 12 Hours) Vital Signs Temp Pulse Pulse Resp BP Pulse Ox O2 Del Method 02/23/23 09:20 81 18 141/89 H 98 Room Air 02/23/23 08:58 85 16 128/86 97 Room Air 02/23/23 08:04 74 18 128/86 98 Room Air 02/23/23 06:00 76 20 130/66 96 Room Air 02/23/23 04:20 79 02/23/23 03:00 37.9 C H 84 18 169/88 H 99 Room Air 02/23/23 02:30 80 16 97 02/23/23 02:00 77 22 96 02/23/23 01:30 73 20 96 02/23/23 01:00 73 22 96 02/23/23 00:30 77 23 97 02/23/23 00:29 76 Laboratory Results 02/22/23 22:19 02/22/23 22:19 PG Care Time/CCT Total # of Minutes Spent Total Time Spent with Patient: Total time spent is greater than 50% in coordination of care (as documented) at patient's floor/unit and/or counseling patient: Coding Level of Care Code 67730 SUB INP/OBS CARE 3/50MIN Diagnoses UTI (urinary tract infection) N39.0 Diarrhea R19.7 Renal transplant recipient Z94.0 Hypertension I10 Diabetes E11.9
[2023-02-23] MEDS: INSULIN ASPART PER UNIT CHARGE SC SCH ×4 (12:20→20:56)
[2023-02-23] MEDS: MEROPENEM 500 MG in SYRINGE 0 ML IV SCH ×2 (13:20→21:21)
[2023-02-23] MEDS ORDERED: VANCOMYCIN HCL 125 MG/2.5ML SOLN PO SCH (15:30)
[2023-02-23] MEDS: CHERRY SYRUP 5 ML UDP PO SCH ×3 (15:36→22:16)
[2023-02-23] MEDS: VANCOMYCIN HCL 250 MG/5 ML SOLN PO SCH ×2 (16:58→22:16)
[2023-02-23] MEDS: ROSUVASTATIN CALCIUM 10 MG TAB PO SCH (21:20)
[2023-02-23] MEDS: MELATONIN 3 MG TAB PO SCH (21:21)
[2023-02-24] MEDS: MEROPENEM 500 MG in SYRINGE 0 ML IV SCH ×4 (05:32→23:56)
[2023-02-24] MEDS: CHERRY SYRUP 5 ML UDP PO SCH ×4 (05:32→23:49)
[2023-02-24] MEDS: VANCOMYCIN HCL 250 MG/5 ML SOLN PO SCH ×4 (05:32→23:49)
[2023-02-24 07:32] LABS: Hematocrit (blood only) 34.9 % (42.0-52.0); Hemoglobin 11.1 g/dl (14.0-18.0); Mean Corpuscular Hemoglobin 26.4 pg (25.0-34.0); Mean Corpuscular Hgb Conc 31.8 g/dL (32.0-36.0); Mean Corpuscular Volume 83.1 fL (80.0-100.0); Mean Platelet Volume 10.2 fL (9.4-12.4); Platelet Count 156 K/uL (130-400); RDW Coefficient of Variation 16.3 % (11.5-14.5); RDW Standard Deviation 49.7 fL (36.4-46.3); White Blood Count 10.43 K/ul (4.8-10.8)
[2023-02-24 07:49] LABS: BUN Creatinine Ratio 13.6 (10-20); Creatinine Clr Calc Pharmacy 70.1 ml/min; Est GFR (African American) 62.9 ml/min; Est GFR (Non-African American) 54.3 ml/min; Potassium 3.9 mmol/L (3.5-5.1)
[2023-02-24] MEDS: TACROLIMUS 1 MG CAP PO SCH ×2 (07:49→21:20)
[2023-02-24] MEDS: LOSARTAN POTASSIUM 50 MG TAB PO SCH (07:50)
[2023-02-24] MEDS: NIFEdipine EXTENDED REL 30 MG TABCR PO SCH (07:50)
[2023-02-24] MEDS: MYCOPHENOLATE MOFETIL 250 MG CAP PO SCH ×2 (07:50→21:20)
[2023-02-24] MEDS: HEPARIN SOD 5,000 UNIT/0.5 ML VIAL SQ SCH ×2 (07:51→21:20)
[2023-02-24] MEDS: LORATADINE 10 MG TAB PO SCH (07:51)
[2023-02-24] MEDS: carvediloL 25 MG TAB PO SCH ×2 (07:51→17:24)
[2023-02-24] MEDS: INSULIN ASPART PER UNIT CHARGE SC SCH ×4 (08:10→21:20)
[2023-02-24] MEDS: FLUoxetine HCL 20 MG CAP PO SCH (09:28)
[2023-02-24] MEDS: FLUTICASONE PROPIONATE NA SPR 16 GM BTL SCH (09:29)
--- NOTE | 2023-02-24 12:56 | Hospitalist Progress Note ---
Date of Service February 24, 2023 Assessment & Plan (1) UTI (urinary tract infection): Plan: Past history of Klebsiella infection. He is now on meropenem, day 2. Gram- negative's isolated in the urine culture. Identification and sensitivities pending. He is immunosuppressed, taking tacrolimus and mycophenolate after renal transplant. (2) Diarrhea: Plan: history of c.diff infection 2 months ago. This apparently has recurred with positive test results. He is now on oral vancomycin. This will need to be tapered off over a prolonged period of time. Probiotics recommended (3) Renal transplant recipient: Plan: Patient s/p renal transplant in 2020 from [place]. BUN and Cr are within normal limits. Continue Mycophenolate and Tacrolimus (4) Hypertension: Plan: Stable. Treated with carvedilol, candesartan, nifedipine (5) Diabetes: Plan: ADA diet. Sliding scale coverage. Patient on Tradjenta at home Plan Anticipate eventual discharge to home. Hopefully tomorrow, February 25 Admission and Anticipated Discharge Date Admission Date: February 23, 2023 Subjective Alert and oriented. Afebrile. No distress. C. difficile toxin assay is positive consistent with recurrent C. difficile enteritis. He remains on oral vancomycin. This will have to be tapered off over a longer period of time. Gr am-negative's isolated in the urine. He remains on meropenem until identification and sensitivities are available. Blood cultures are negative. Hopefully he can go home tomorrow, February 25 Review of Systems Review of Systems: Constitutional-recent onset of fever and chills ENT-no blurred vision, no double vision, no epistaxis, no sore throat Respiratory-no cough, no wheezing, no shortness of breath Cardiac-no palpitations, no chest pain, no syncope GI-no nausea, vomiting, melena, hematochezia. He has noticed diarrhea stools -no urinary retention, no urinary incontinence, no dysuria, no hematuria Musculoskeletal-no joint pain, no muscle tenderness Skin-no bruising, no rashes, no pruritus Neuro-no isolated weakness, no paresthesia, no weakness Psych-no depression, no anxiety Physical Exam Physical Exam: General-alert and oriented x3. Recent onset of fever and chills HEENT-head atraumatic and normocephalic, pupils equal and reactive to light, extraocular muscles intact Neck-no lymphadenopathy or thyromegaly, trachea midline Chest-clear to auscultation percussion. No rales wheezing or rhonchi Cardiac-regular rate and rhythm, normal S1 and S2 Abdomen-normal bowel sounds, nontender, no hepatosplenomegaly Extremities-no cyanosis, clubbing, or edema Neuro-cranial nerves II through XII intact, motor and sensory function within normal limits, strength symmetrical , no focal deficits Psych-normal affect, normal mood Results & Data Results & Data Vital Signs (Past 12 Hours) Vital Signs Temp Pulse Resp BP Pulse Ox O2 Del Method 02/24/23 07:20 37.2 C 77 16 130/70 98 Room Air Laboratory Results 02/24/23 06:57 02/24/23 06:57 PG Care Time/CCT Total # of Minutes Spent Total Time Spent with Patient: Total time spent is greater than 50% in coordination of care (as documented) at patient's floor/unit and/or counseling patient: Coding Level of Care Code 46878 SUB INP/OBS CARE 2/35MIN Diagnoses UTI (urinary tract infection) N39.0 Diarrhea R19.7 Renal transplant recipient Z94.0 Hypertension I10 Diabetes E11.9
[2023-02-24] MEDS: ACETAMINOPHEN 325 MG TAB PO PRN (19:43)
[2023-02-24] MEDS: ROSUVASTATIN CALCIUM 10 MG TAB PO SCH (21:20)
[2023-02-24] MEDS: MELATONIN 3 MG TAB PO SCH (21:20)
[2023-02-25] MEDS: CHERRY SYRUP 5 ML UDP PO SCH ×2 (05:31→11:20)
[2023-02-25] MEDS: VANCOMYCIN HCL 250 MG/5 ML SOLN PO SCH ×2 (05:31→11:20)
[2023-02-25] MEDS: MEROPENEM 500 MG in SYRINGE 0 ML IV SCH ×2 (05:31→11:53)
[2023-02-25] MEDS: LOSARTAN POTASSIUM 50 MG TAB PO SCH (07:23)
[2023-02-25] MEDS: MYCOPHENOLATE MOFETIL 250 MG CAP PO SCH (07:23)
[2023-02-25] MEDS: LORATADINE 10 MG TAB PO SCH (07:23)
[2023-02-25] MEDS: TACROLIMUS 1 MG CAP PO SCH (07:23)
[2023-02-25] MEDS: NIFEdipine EXTENDED REL 30 MG TABCR PO SCH (07:23)
[2023-02-25] MEDS: HEPARIN SOD 5,000 UNIT/0.5 ML VIAL SQ SCH (07:24)
[2023-02-25] MEDS: carvediloL 25 MG TAB PO SCH (07:24)
[2023-02-25] MEDS: FLUoxetine HCL 20 MG CAP PO SCH (07:24)
[2023-02-25] MEDS: FLUTICASONE PROPIONATE NA SPR 16 GM BTL SCH (07:25)
[2023-02-25] MEDS: INSULIN ASPART PER UNIT CHARGE SC SCH ×2 (07:55→11:52)
--- NOTE | 2023-02-25 11:58 | Discharge Summary ---
Date of Service February 25, 2023 Admission HPI Per Admitting Provider Tobin Steele is a 72yo male with history of renal transplant in 2020 (performed at [facility]) presenting with UTI and generalized illness. Patient is from [place] and is in [employer] for the football game. On 02/22/23 AM around 0900 he began to feel ill - lightheaded with body pain, sore hands and joints. He also developed nausea with 3 episodes of non-bloody/non-bilious emesis and watery diarrhea. He has also been experiencing dysuria as well as increased urinary frequency and incontinence. He did have a dry cough as well as some chest pressure earlier today. No additional complaints at this time. In the ER he has elevated temperature of 37.9, hemodynamically stable ER Provider contacted patient's transplant team for some baseline information. Patient had a UTI and Pneumonia in November and an episode of c. diff in December. He also had a UTI in January. His urine cultures were positive for Klebsiella species that had some resistance - sensitive to Meropenem/Ertapenem and Gentamicin. His baseline WBC on most recent labs was 5 and his baseline Cr was 1.4 Principal Diagnosis Recurrent C. difficile enteritis, uncomplicated E. coli UTI Discharge Exam General-alert and oriented x3. Recent onset of fever and chills HEENT-head atraumatic and normocephalic, pupils equal and reactive to light, extraocular muscles intact Neck-no lymphadenopathy or thyromegaly, trachea midline Chest-clear to auscultation percussion. No rales wheezing or rhonchi Cardiac-regular rate and rhythm, normal S1 and S2 Abdomen-normal bowel sounds, nontender, no hepatosplenomegaly Extremities-no cyanosis, clubbing, or edema Neuro-cranial nerves II through XII intact, motor and sensory function within normal limits, strength symmetrical , no focal deficits Psych-normal affect, normal mood Discharge Data Allergies Allergy/AdvReac Type Severity Reaction Status Date / Time Penicillins Allergy Swelling Verified 02/23/23 00:44 of Lip/Tongue/Throat shellfish derived Allergy Swelling Verified 02/23/23 00:44 of Lip/Tongue/Throat Consultations 02/23/23 05:05 ED Decision to Admit Stat Hospital Course (1) UTI (urinary tract infection): Treated while hospitalized with intravenous meropenem. Pansensitive E. coli isolated. Home on ciprofloxacin. (2) Diarrhea: Recurrent C. difficile enteritis. He is now on oral vancomycin therapy. He will take a prolonged tapering course of vancomycin at discharge. Probiotics recommended (3) Renal transplant recipient: Patient s/p renal transplant in 2020 from [place]. BUN and Cr are within normal limits. Continue Mycophenolate and Tacrolimus (4) Hypertension: Stable. Treated with carvedilol, candesartan, nifedipine (5) Diabetes: ADA diet. Sliding scale coverage. Patient on Tradjenta at home Plan Home today, February 25 Total Time Total Time Spent Total Time Spent (In Minutes): 45 minutes Discharge Plan Discharge Items Patient Disposition: Home - Self-Care Reason For Visit: UTI, SEPSIS Discharge Diagnosis: Recurrent C. difficile enteritis, E. coli UTI Activity: Resume your previous activity Non-emergency contact: Primary Care Provider and Undercover Agent Call non-emergency contact if: you have any medication questions and your symptoms worsen Follow-up/Referrals: Mehdi Talamantes MD [Primary Care Provider] - (PATIENT IS VISITING FROM [place]. HE WILL FOLLOW UP WITH HIS PCP 7-10 DAYS.) Diet: Carb Consistent or DM2 and Heart Healthy Addtl Attending Provider Instructions: Take Cipro for 5 more days for the bladder infection. Take vancomycin for a prolonged tapering course until discontinued. Take a probiotic indefinitely Pending Studies at Discharge: No Stand-Alone Forms: [facility] [employer], Smoking Cessation Medications and DC Order Prescriptions: New ciprofloxacin HCl [Cipro] 500 mg tablet 500 mg PO BID Qty: 10 0RF vancomycin 125 mg capsule 125 mg PO DIRECTED Qty: 58 0RF Rx Instructions: take 125 mg 4 times per day for for 7 days, then 3 times a day for 5 days, then twice a day for 5 days, then once a day for 5 days, then stop Continued mycophenolate mofetil 500 mg tablet 1,000 mg PO Q12 candesartan 16 mg tablet 16 mg PO DAILY tacrolimus 1 mg capsule 2 mg PO AMHS carvedilol 25 mg tablet 25 mg PO BID fluoxetine 20 mg capsule 20 mg PO DAILY nifedipine 30 mg tablet extended release 24hr 30 mg PO DAILY rosuvastatin 10 mg tablet 10 mg PO HS Tradjenta 5 mg tablet 5 mg PO DAILY loratadine 10 mg Tablet 10 mg PO DAILY melatonin 5 mg Tablet 5 mg PO HS fluticasone propionate [Flonase] 50 mcg/actuation [place],Suspension 2 spray INTRANASAL DAILY Rx Instructions: administer into each nostril Discharge Orders: Discharge Order (Routine); Ordered 02/25/23 Ordered By: Reinaldo Graff/Other Patient Handouts: Managing Type 2 Diabetes Admission Data Admit Date/Time: 02/23/23 05:20 Attending Provider: Reinaldo Saul Admit Provider: Emy Amado Primary Care Provider: Mehdi Talamantes Other Providers: Emy Amado Coding Level of Care Code 93106 INP/OBS DISCH >30 MIN Diagnoses UTI (urinary tract infection) N39.0 Diarrhea R19.7 Renal transplant recipient Z94.0 Hypertension I10 Diabetes E11.9
== END 2023-02-25 13:10 | disposition home or self-care (01) | DRG 690 ==
LOC: ED 21:56 → EDINP 02-23 05:20 → SUATTDRO 02-23 05:20 → 3E 02-23 11:50